=== PATIENT | male | born 1965 | race Caucasian/White ===

== ENCOUNTER 2020-08-05 11:38 | Emergency (ER) | payer OTHER, SELFPAY ==
[2020-08-05 11:39] VITALS: BP 144/105; PULSE 82; RESP 16; TEMP 36.6; O2SAT 97; BMI 31.4
--- NOTE | 2020-08-05 12:26 | ED.VIS.GEN ---
History of Present Illness Chief Complaint: Lower Extremity Injury Informant: Patient Narrative: D4-year-old male presenting with right leg pain. He states he slipped on the ice with his left leg and caught himself with the right leg. He states he has a problem of torn meniscus in his right knee however cannot his knee it is hurting. He hurts on his calf and his hamstring. He states it hurts to walk. He third thought he heard a pop when he started to fall. He did not fall or strike his knee. Prior similar symptoms: Yes Past Medical History - Allergies and Home Meds Allergies/Adverse Reactions: Allergies No Known Allergies Allergy (Verified 08/05/20 11:40) Prior records reviewed: Yes Past Medical History: - - Patient denies significant medical history Surgical History: noncontributory Lives: Alone Smoking Status: Never smoker Alcohol: None Drugs: None Review of Systems General: Denies: Chills, Fever, Sweats Eyes: Denies: Visual changes - bilaterally, Diplopia ENT: Denies: Rhinorrhea, Sore throat Cardiovascular: Denies: Chest pain, Palpitations Respiratory: Denies: Dyspnea, Cough, Dyspnea on exertion Gastrointestinal: Denies: Abdominal pain, Nausea, Vomiting, Diarrhea, Melena, Hematochezia Musculoskeletal: Reports: Extremity Pain - Right calf and hamstring pain. Denies: Swelling Skin: Reports: Rash, Abscess Physical Exam Vital Signs/Narrative: Vital Signs Temp Pulse Resp BP Pulse Ox 08/05/20 11:39 97.9 F 82 16 144/105 H 97 Inital Vital Signs reviewed: Yes General: Well nourished, Well developed, No Acute Distress Eyes: Perrl, EOMI ENT: Moist mucous membranes, No rhinorrhea Neck: Supple, Nontender Cardiovascular: Regular rate, Regular rhythm, No murmurs Respiratory: No distress, CTA bilaterally, Chest nontender Extremities: No edema, - - Tenderness to palpation in the right calf and right hamstring which is mild. Tensor mechanism is intact in the right knee. Patient able to flex and extend his leg however weightbearing hurts worse. Skin: Normal color Neurological: Alert, Oriented x3 Psychological: Normal affect, Normal Mood Diagnostic/Tx/Re-eval - Medical Decision Making Patient has pain in the right hamstring and in the right calf which hurts when he ambulates. On exam he is able to move his leg while sitting supine in the bed. He has difficulty with weightbearing. I suspect he has strain injury versus a slight muscle tear. His knee exam is normal and he has no ligament laxity and his extensor mechanism intact. Patient was placed in Graeme wrap his pain. He is counseled to ice and elevate. He is given crutches to help him ambulate. Will follow up with his orthopedic doctor. Patient stable for discharge at this time. Impression: 1. Right thigh strain 2. Right calf strain ED Disposition - Plan for ED Patient: Disposition: Home or Assisted Living Instructions: ED Muscle Strain, Extremity
== END 2020-08-05 12:45 | disposition home or self-care (01) ==
LOC: ED 12:36
PROVIDERS: Emergency Provider Student in an Organized Health Care Education/Training Program; PCP Internal Medicine
DX: S76.911A Strain of unspecified muscles, fascia and tendons at thigh level, right thigh, initial encounter (principal); S86.111A Strain of other muscle(s) and tendon(s) of posterior muscle group at lower leg level, right leg, initial encounter; W00.0XXA Fall on same level due to ice and snow, initial encounter
CPT/HCPCS: 99283

== ENCOUNTER 2022-02-26 19:26 | Emergency (ER) | payer OTHER, SELFPAY ==
[2022-02-26 19:27] VITALS: BP 167/100; PULSE 70; RESP 14; TEMP 36.4; O2SAT 99; BMI 31.4
--- NOTE | 2022-02-26 19:50 | RAD_ITS ---
STUDY: XR Knee Complete 4 Views or More 02/26/2022 8:28 PM REASON FOR EXAM: Male, 56 years old. PAIN TECHNIQUE: XR Knee Complete 4 Views or More RIGHT COMPARISON: None FINDINGS: Normal visualized distal femur. Normal visualized proximal tibia and fibula. Normal proximal tibiofibular articulation. Normal medial femorotibial compartment. Normal lateral femorotibial compartment. Normal patellofemoral articulation. There is a soft tissue prominence in the suprapatellar region suggesting a small volume joint effusion. The soft tissue structures are unremarkable. RAD/Knee 4 or More Views IMPRESSION: Effusion, as described above. Electronically Signed: Ignacio Nelson MD at 20:29 EDT ,
[2022-02-26 20:32] VITALS: RESP 18
--- NOTE | 2022-02-26 20:32 | ED.VIS.LOWEX ---
HPI History of Present Illness Chief Complaint: Lower Extremity Injury Informant: patient Onset/Context/Timing Onset: Today Context: Sudden Onset (With bending knee) Timing: Continuous Quality of Pain: Aching Location: Right knee Current Severity: Severe Maximum Severity: Severe Worsened by: Any movement Relieved by: Nothing having trouble finding comfortable position Associated Symptoms Associated Symptoms: Positive for Loss of Funtion; Negative for Parasthesia or Weakness Narrative Narrative: Patient has history of chronic issues with his right knee that go back to high school, he had arthroscopic surgery back then, that he states did not show any issues, he did not start having major issues until the past year or so. He had an MRI about 6 or 7 months ago, other than an effusion he states it did not show anything specific. He is due back to see orthopedics after the weekend, but today he bent his knee and it locked, he felt crackling, it has been more swollen since then and he has been in excruciating pain. His knee has not given him any pain like this at all in the past. He now cannot move it either way. He denies any neurologic symptoms distally. No other injuries. [facility] Medical History HTN (hypertension) Home Medications amlodipine 10 mg tablet 1 tab PO DAILY 02/26/22 [History Last Taken Unknown] losartan 100 mg tablet 1 tab PO DAILY 02/26/22 [History Last Taken Unknown] oxycodone-acetaminophen 5 mg-325 mg tablet 1 tab PO Q6H PRN PRN Pain 3 days #12 TABLETS 02/26/22 [Rx Last Taken Unknown] Allergy/AdvReac Type Severity Reaction Status Date / Time No Known Allergies Allergy Verified 02/26/22 19:31 Social History Smoking Status: Never smoker ROS ROS ED Constitutional Constitutional ED: Denies chills or fever(s) Musculoskeletal Musculoskeletal: Reports extremity pain; Denies neck pain Integumentary Denies Abrasions, rash or wounds Neurologic Neurologic: Denies paresthesias or weakness EXAM Physical Exam Const Vital Signs: 02/26/22 19:27 Temperature 97.6 F L Temperature Source Temporal Pulse Rate 70 Respiratory Rate 14 Blood Pressure 167/100 H Blood Pressure Mean 122 Pulse Ox 99 Oxygen Delivery Method Room Air Positive well nourished and well developed General Appearance ED: well developed and NAD Neck full ROM and supple Back/Spine normal ROM and normal to inspection Extremity Extremity Narrative: Mildly swollen right knee probable effusion. Holding an about 30 degrees of flexion, patient states unable to move either way. No deformities. Anterior and posterior drawer signs negative, but exam is limited. Not able to evaluate MCL and LCL. Mildly tender at the lateral joint line. No erythema or excessive warmth to the area. Neuro oriented x3, no focal motor deficits and no sensory deficits noted Sensorium / Orientation: alert Psych mental status grossly normal and thought process normal Skin no wounds Rashes: no rashes MDM MDM MDM Narrative Medical decision making narrative: On my interpretation 4 view x-ray series of the right knee shows an effusion but no other acute abnormality, radiology in agreement. I suspect patient has internal derangement probably a torn meniscus. If his MRI did not show this, he may need arthroscopic surgery. Going back to orthopedics is the right move here. I am going to place him in a knee immobilizer since he is so miserable and having trouble keeping it in 1 spot, prescribe him some analgesics and give him something here, he and are comfortable with that plan. Radiography Diagnostic Testing: Clinical Impression(s) from Imaging Studies Knee X-Ray 02/26/22 19:50 IMPRESSION: Effusion, as described above. Electronically Signed: Ignacio Nelson MD at 20:29 EDT Reading Location ID and State: [facility]– [place][note 2] / [place] , Service support , Discharge Plan Triage Chief Complaint: Lower Extremity Injury ED Provider: Grant Austin Dx/Rx/DC Orders Clinical Impression: Acute internal derangement of right knee, Effusion of right knee Instructions: ED Meniscal Injury Knee Poss, ED Knee Immobilizer Prescriptions: New oxycodone-acetaminophen [oxycodone-acetaminophen] 5-325 mg tablet 1 tab PO Q6H PRN PRN (Reason: Pain) 3 Days Qty: 12 0RF No Action amlodipine 10 mg tablet 1 tab PO DAILY Label Comments: TAKE 1 TABLET BY MOUTH EVERY DAY losartan 100 mg tablet 1 tab PO DAILY Label Comments: TAKE 1 TABLET BY MOUTH EVERY DAY Primary Care Provider: Andriy Lake Referrals: Grant Olson MD [NON-STAFF] - Keep Jenny appointment Andriy Lake MD [Primary Care Provider] - Disposition Disposition: Home, Self Care
[2022-02-26] MEDS: Ondansetron ODT 4 MG Tablet 8 MG PO (20:57)
[2022-02-26] MEDS: Morphine 4 MG/ML Syringe IM (20:57)
== END 2022-02-26 21:07 | disposition home or self-care (01) ==
LOC: ED 20:47
PROVIDERS: Emergency Provider Emergency Medicine; PCP Family Medicine; Visit Provider Emergency Medicine
DX: M23.91 Unspecified internal derangement of right knee (principal); M25.461 Effusion, right knee; I10 Essential (primary) hypertension; Z79.899 Other long term (current) drug therapy
CPT/HCPCS: 73564; 99284

== ENCOUNTER 2023-11-30 11:42 | Emergency (ER) | payer BC, OTHER, SELFPAY ==
[2023-11-30 11:43] VITALS: BP 122/89; PULSE 82; RESP 18; TEMP 36.3; O2SAT 96; BMI 32.0
--- NOTE | 2023-11-30 12:08 | CT_ITS ---
STUDY: CT CERVICAL SPINE WITHOUT CONTRAST REASON FOR EXAM: Male, 58 years old. trauma RADIATION DOSAGE (If Supplied By Facility): CTDIvol = ( 22.18 ) mGy, DLP = ( 494.42 ) mGycm TECHNIQUE: High resolution transaxial imaging was performed without contrast material. Sagittal and coronal images were reconstructed. Individualized dose optimization techniques were used for this CT. COMPARISON: None FINDINGS: Normal craniovertebral junction. Normal anterior atlantoaxial articulation. Normal odontoid process. There is straightening of the normal cervical lordosis. No visualized acute fracture or compression deformity or jumped facets. Multilevel degenerative changes are present. Normal visualized soft tissue structures. CT/Spine Cervical without Contras IMPRESSION: Multilevel degenerative changes, as described above. Electronically Signed: Moisés Garay MD at 12:39 EDT ,
--- NOTE | 2023-11-30 12:08 | CT_ITS ---
STUDY: CT BRAIN WITHOUT CONTRAST REASON FOR EXAM: Male, 58 years old. Trauma RADIATION DOSAGE (If Supplied By Facility): CTDIvol = ( 44.99 ) mGy, DLP = ( 832.67 ) mGycm TECHNIQUE: Transaxial CT imaging of the brain was performed without administration of intravenous contrast material. Individualized dose optimization techniques were used for this CT. COMPARISON: None. FINDINGS: Normal soft tissue structures. Normal calvarium. There is no visualized skull fracture or subdural hemorrhage or extra-axial fluid collection. Normal size ventricles and extra-axial spaces for the patient''s age. There are areas of decreased attenuation within the white matter tracts of the supratentorial brain, consistent with microvascular disease changes. Normal basal ganglia and thalami. Normal brainstem. Normal cerebellum. There is no intracranial hemorrhage. There are no findings of an acute ischemic infarction. There is mucoperiosteal inflammatory disease of the paranasal sinuses consistent with mild chronic sinusitis. CT/Brain/Head without Contrast IMPRESSION: 1. No acute process of the brain. Electronically Signed: Moisés Garay MD at 12:37 EDT ,
--- NOTE | 2023-11-30 12:20 | RAD_ITS ---
STUDY: X-RAY - PELVIS REASON FOR EXAM: Male, 58 years old. fall TECHNIQUE: One view of the pelvis was obtained. COMPARISON: None. FINDINGS: There is a non-specific bowel gas pattern. Normal visualized soft tissue structures. There are no visualized fractures or displaced bony fragments. Normal bilateral iliac wings, sacroiliac joints and visualized sacrum. Normal visualized bilateral superior and inferior pubic rami. Normal pubic symphysis. Normal ischial tuberosities. Normal visualized right femoral head. Normal right acetabulum. Normal right hip joint. Normal visualized left femoral head. Normal left acetabulum. Normal left hip joint. RAD/Pelvis 1 or 2 Views IMPRESSION: Normal x-ray examination of the pelvis. Electronically Signed: Moisés Garay MD at 14:13 EDT ,
--- NOTE | 2023-11-30 12:20 | RAD_ITS ---
STUDY: X-RAY - LUMBAR SPINE REASON FOR EXAM: Male, 58 years old. fall TECHNIQUE: 3 view(s) of the lumbar spine were obtained. COMPARISON: None FINDINGS: Normal lumbar lordosis. There is no substantial scoliosis. There is a normal alignment of the vertebrae. There is diffuse demineralization with multi-level endplate spondylosis. There is multi-level degenerative disc disease with multi-level disc space narrowing. There is no demonstrated fracture or compression deformity. The soft tissue structures are unremarkable. RAD/Lumbar Spine 2 or 3 Views IMPRESSION: Degenerative changes of the spine, as detailed above. Electronically Signed: Moisés Garay MD at 14:14 EDT ,
--- NOTE | 2023-11-30 12:32 | EX.ED.DYSGE1 ---
HPI History of Present Illness Chief Complaint: Fall Informant: patient Onset/Context/Timing Onset: Today (3 AM) Narrative Narrative: Patient presents secondary to fall. 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 He struck his head and neck against the wall behind him and landed hard on his upper buttocks and lower back. He has pain to the mid lower abdomen whenever he walks. Pain does not radiate to his legs. No problems with bowel or bladder control. He did not lose consciousness and has not had any problems with nausea or vomiting. [facility] Medical History HTN (hypertension) Home Medications amlodipine 10 mg tablet 1 tab PO DAILY 02/26/22 [History Last Taken Unknown] losartan 100 mg tablet 1 tab PO DAILY 02/26/22 [History Last Taken Unknown] oxycodone-acetaminophen 5 mg-325 mg tablet 1 tab PO Q6H PRN PRN Pain 3 days #12 TABLETS 02/26/22 [Rx Last Taken Unknown] cyclobenzaprine 10 mg tablet 10 mg PO TID PRN Muscle Spasm #20 TABLETS 11/30/23 [Rx Last Taken Unknown] naproxen 500 mg tablet (Naprosyn) 500 mg PO BID PRN pain #20 tabs 11/30/23 [Rx Last Taken Unknown] Allergy/AdvReac Type Severity Reaction Status Date / Time No Known Allergies Allergy Verified 11/30/23 11:43 Social History Smoking Status: Never smoker ROS ROS ED Constitutional Constitutional ED: Denies chills or fever(s) Eyes Eyes: Denies discharge from eye(s) ENT ENT ED: Denies discharge from eye(s), rhinorrhea or sore throat Cardiovascular Cardiovascular: Denies chest pain Respiratory/Chest Respiratory/Chest: Denies cough or dyspnea Gastrointestinal Gastrointestinal: Reports abdominal pain; Denies diarrhea, nausea or vomiting Genitourinary Genitourinary ED: Denies difficulty urinating or dysuria Musculoskeletal Musculoskeletal: Reports back pain and neck pain; Denies extremity pain Integumentary Reports Abrasions; Denies rash Neurologic Neurologic: Denies headache(s) or weakness Psychiatric Psychiatric: Denies anxiety or depression Allergic/Immunologic Allergic/Immunologic ED: Denies lip swelling or urticaria EXAM Physical Exam Const Vital Signs: 11/30/23 11:43 11/30/23 11:51 11/30/23 13:42 Temperature 97.4 F L Temperature Source Temporal Pulse Rate 82 84 Respiratory Rate 18 14 Respiratory Effort Normal Respiratory Depth Normal Respiratory Pattern Normal Blood Pressure 122/89 H 124/82 H Blood Pressure Mean 100 96 Pulse Ox 96 99 Oxygen Delivery Method Room Air Room Air Room Air Positive well nourished and well developed General Appearance ED: well developed HEENT HEENT Narrative: Superficial linear abrasions over the superior parietal scalp. No full-thickness lacerations. Eyes EOMs intact bilaterally Neck Neck Narrative: No focal C-spine tenderness. Chest Wall inspection of chest normal and palpation of chest normal Resp normal respiratory effort and clear to auscultation bilaterally Cardio regular rate and regular rhythm GI non-tender Palpation: soft Back/Spine Back/Spine Narrative: No reproducible midline lumbar paraspinal tenderness. No abrasions or ecchymosis to the lower back. Extremity normal to inspection Neuro oriented x3 and no sensory deficits noted Motor Exam: strength 5/5 throughout Psych mental status grossly normal Skin Skin Narrative: Scalp abrasions as noted above. MDM MDM MDM Narrative Medical decision making narrative: Patient declines anything for pain at this time. CT scan of the head and C-spine will be obtained to evaluate for fracture, bleed, edema. Lumbar spine and pelvis x-rays will be obtained to evaluate for compression fracture, fracture, spondylosis. Radiography Diagnostic Testing: Clinical Impression(s) from Imaging Studies Brain CT 11/30/23 12:08 IMPRESSION: 1. No acute process of the brain. Electronically Signed: Moisés Garay MD at 12:37 EDT , Cervical Spine CT 11/30/23 12:08 IMPRESSION: Multilevel degenerative changes, as described above. Electronically Signed: Moisés Garay MD at 12:39 EDT , Lumbar Spine X-Ray 11/30/23 12:20 IMPRESSION: Degenerative changes of the spine, as detailed above. Electronically Signed: Moisés Garay MD at 14:14 EDT , Pelvis X-Ray 11/30/23 12:20 IMPRESSION: Normal x-ray examination of the pelvis. Electronically Signed: Moisés Garay MD at 14:13 EDT , Treatment and Re-Evaluation :: CT scan of the head reveals no acute process. CT the C-spine reveals multilevel degenerative changes. No acute fracture. Lumbar spine and x-ray of the pelvis per my interpretation reveal chronic arthritic changes with no evidence of fracture. Radiology interpretation reviewed and agrees. Test results discussed with the patient. I will write him Naprosyn and Flexeril to help with muscle spasm. Patient will follow-up with [facility] care. Return instructions given. Discharge Plan Triage Chief Complaint: Fall ED Provider: Christiane Patel Dx/Rx/DC Orders Clinical Impression: Abrasion of scalp, Lumbar contusion, Closed head injury, Fall Instructions: ED Back Contusion, ED Head Injury (Adult) Prescriptions: New naproxen [Naprosyn] 500 mg tablet 500 mg PO BID PRN (Reason: pain) Qty: 20 0RF cyclobenzaprine 10 mg tablet 10 mg PO TID PRN (Reason: Muscle Spasm) Qty: 20 0RF No Action amlodipine 10 mg tablet 1 tab PO DAILY Patient Comments: TAKE 1 TABLET BY MOUTH EVERY DAY losartan 100 mg tablet 1 tab PO DAILY Patient Comments: TAKE 1 TABLET BY MOUTH EVERY DAY oxycodone-acetaminophen [oxycodone-acetaminophen] 5-325 mg tablet 1 tab PO Q6H PRN PRN (Reason: Pain) 3 Days Qty: 12 0RF Stand Alone Forms: Work Status Form Primary Care Provider: Andriy Lake Referrals: [facility]Group [facility] Physicians] - 3-5 Days Andriy Lake MD [Primary Care Provider] - Disposition Disposition: Home, Self Care
[2023-11-30 13:42] VITALS: BP 124/82; PULSE 84; RESP 14; O2SAT 99
[2023-11-30 14:40] VITALS: BP 124/82; PULSE 84; RESP 14; TEMP 36.3; O2SAT 99
== END 2023-11-30 14:41 | disposition home or self-care (01) ==
PROVIDERS: Emergency Provider Emergency Medicine; PCP Family Medicine; Visit Provider Emergency Medicine
DX: S00.01XA Abrasion of scalp, initial encounter (principal); S30.0XXA Contusion of lower back and pelvis, initial encounter; W19.XXXA Unspecified fall, initial encounter
CPT/HCPCS: 70450; 72100; 72125; 72170; 99283